=== PATIENT | female | born 1960 | race Caucasian/White ===

== ENCOUNTER 2017-05-12 15:26 | Outpatient (CLI) | payer OTHER ==
--- NOTE | 2017-05-12 17:18 | MMO ---
BILATERAL DIGITAL SCREENING MAMMOGRAMS 05/12/17 HISTORY: 56-year-old female presents with digital screening mammography. COMPARISON: 04/15/16, 01/31/15, 01/30/14, 12/31/12, 12/10/10. This patient's mammogram is interpreted with the assistance of computer aided detection. The breasts are heterogeneously dense which can obscure small masses. there is an occasionally typica lly benign calcification. The appearance is stable. No direct or indirect evidence of malignancy. IMPRESSION: BI-RADS 2: Benign Finding(s) Routine annual screening mammography (for women over age 40). POS: MICHAEL
== END 2017-05-12 15:27 | disposition home or self-care (01) ==
LOC: SCSMAMMO 15:26
PROVIDERS: ATTEND Internal Medicine
DX: Z12.31 Encounter for screening mammogram for malignant neoplasm of breast (principal)
CPT/HCPCS: 77067; G0202

== ENCOUNTER 2017-11-27 15:16 | Outpatient (CLI) | payer OTHER ==
--- NOTE | 2017-11-27 15:36 | RAD ---
RIGHT FOOT 3 VIEWS: HISTORY: Right foot pain and swelling. FINDINGS/IMPRESSION: No fracture, dislocation, or bony destruction is seen. POS: VERONICAH
== END 2017-11-27 15:17 | disposition home or self-care (01) ==
LOC: SCSRAD 15:16
PROVIDERS: ATTEND Family Medicine
DX: M79.671 Pain in right foot (principal)

== ENCOUNTER 2018-07-12 13:49 | Outpatient (CLI) | payer OTHER ==
--- NOTE | 2018-07-12 17:59 | MMO ---
BILATERAL DIGITAL SCREENING MAMMOGRAM: Date: 07/12/18 HISTORY: 58-year-old female presents for annual digital screening mammography. FINDINGS: Comparison made to previous exam from 05/12/17. Images were also evaluated using computer-aided detection. Images demonstrate fibroglandular tissue seen in both breasts. No definite evidence of masses or lesi ons seen. No evidence of architectural distortion seen. IMPRESSION: BIRADS 1: Negative exam POS: MICHAEL
== END 2018-07-12 13:50 | disposition home or self-care (01) ==
LOC: SCSMAMMO 13:49
PROVIDERS: ATTEND Internal Medicine
DX: Z12.31 Encounter for screening mammogram for malignant neoplasm of breast (principal)
CPT/HCPCS: 77067